=== PATIENT | male | born 1995 | race Hispanic/Latino ===

== ENCOUNTER 2022-08-04 09:18 | Emergency (ER) | payer OTHER ==
[~2022-08-04] VITALS: Ht 167.6 cm; Wt 81.6 kg
[2022-08-04] MEDS ORDERED: KETOROLAC 30MG VIAL (30MG/ML) IM STA (10:16)
[2022-08-04] MEDS ORDERED: ORPHENADRINE CITRATE 30 MG/ML ML IM STA (10:16)
[2022-08-04 10:37] LABS: APPEARANCE,URINE CLEAR (CLEAR); BILIRUBIN,URINE NEGATIVE (NEGATIVE); COLOR,URINE YELLOW (YELLOW); GLUCOSE, URINE (UA) NEGATIVE (NEGATIVE); KETONES,URINE NEGATIVE (NEGATIVE); LEUKOCYTE ESTERASE ,URINE NEGATIVE Leu/uL (NEGATIVE); MUCUS,URINE RARE LPF (None Seen); NITRATE,URINE NEGATIVE (NEGATIVE); OCCULT BLOOD,URINE NEGATIVE (NEGATIVE); PH,URINE 5.5 (5.0-8.0); PROTEIN,URINE 20 mg/dL (NEGATIVE); RBC,URINE 0-1 /HPF (0-1); UROBILINOGEN,URINE 0.2 mg/dL (0.2-1.0); WBC,URINE 0-1 /HPF (0-1)
[2022-08-04 10:41] LABS: AMPHET/METH SCREEN,URINE NEGATIVE (NEGATIVE); BARBITURATE SCREEN, URINE NEGATIVE (NEGATIVE); BENZODIAZEPINES SCREEN,URINE NEGATIVE (NEGATIVE); CANNABINOID SCREEN,URINE POSITIVE (NEGATIVE); COCAINE SCREEN,URINE POSITIVE (NEGATIVE); OPIATE SCREEN,URINE NEGATIVE (NEGATIVE); PHENCYCLIDINE SCREEN,URINE NEGATIVE (NEGATIVE)
[2022-08-04 11:57] VITALS: BP 113/79
== END 2022-08-04 11:57 | disposition home or self-care (01) ==
LOC: EDH 09:18
DX: S33.5XXA Sprain of ligaments of lumbar spine, initial encounter (principal); X58.XXXA Exposure to other specified factors, initial encounter; Y93.89 Activity, other specified; Y92.89 Other specified places as the place of occurrence of the external cause; Y99.8 Other external cause status
CPT/HCPCS: 99284; 80305; 72100; 72072; 96372; 81001; J1885; J2360